=== PATIENT | female | born 1970 | race African-American/Black ===

== ENCOUNTER 2016-03-17 15:00 | Emergency (ER) | payer MEDICARE ==
[2015-08-16 06:44] VITALS: BMI 37.2
[~2016-03-17 15:00] MED LIST: LEVOXYL137 MCG PO; TENORMIN25 MG PO
== END 2016-03-17 18:45 | disposition home or self-care (01) ==
LOC: D.ER 15:00
DX: L02.11 Cutaneous abscess of neck (principal); E10.8 Type 1 diabetes mellitus with unspecified complications; E07.9 Disorder of thyroid, unspecified